=== PATIENT | female | born 1995 | race Caucasian/White ===

== ENCOUNTER 2020-12-24 13:30 | Emergency (ER) | payer OTHER ==
[~2020-12-24] VITALS: Ht 157.5 cm; Wt 47.6 kg
[2020-12-24 14:34] LABS: ABSOLUTE NEUTROPHILS 7.6 thou/uL (1.4-8.2); BASOPHILS 0.3 % (0.0-2.0); EOSINOPHILS 0.1 % (0.0-3.0); HEMATOCRIT 42.1 % (37.0-47.0); LYMPHOCYTES 5.3 % (24.0-44.0); MCH 30.2 pg (26.0-34.0); MCHC 33.2 g/dL (28.0-37.0); MCV 91.1 fL (80.0-100.0); MONOCYTES 5.3 % (1.0-8.0); RBC 4.62 mil/uL (4.20-5.00); RDW 12.6 % (10.5-14.5); WBC 8.5 thou/uL (4.0-11.0)
[2020-12-24 14:48] LABS: ANION GAP 13 mmol/L (7-16); BUN 7 mg/dL (7-18); CALCIUM 8.7 mg/dL (8.5-10.1); CHLORIDE 99 mmol/L (98-107); CO2 21 mmol/L (21-32); CREATININE 0.8 mg/dL (0.6-1.0); GLUCOSE 87 mg/dL (74-106); POTASSIUM 3.9 mmol/L (3.5-5.1); SODIUM 133 mmol/L (136-145)
[2020-12-24 14:58] LABS: ALBUMIN 4.3 g/dL (3.4-5.0); SGOT 24 U/L (15-37); SGPT 20 U/L (30-65); TOTAL BILIRUBIN 0.6 mg/dL (0.2-1.0); TOTAL PROTEIN 8.3 g/dL (6.4-8.2)
[2020-12-24 15:34] LABS: URINE BILIRUBIN NEGATIVE (Negative); URINE BLOOD TRACE (Negative); URINE CLARITY CLEAR; URINE GLUCOSE-RANDOM* NEGATIVE (Negative); URINE KETONES 1+ (Negative); URINE LEUKOCYTES-REFLEX NEGATIVE (Negative); URINE NITRITE-REFLEX NEGATIVE (Negative); URINE PROTEIN (DIPSTICK) NEGATIVE (Negative); URINE SPECIFIC GRAVITY <= 1.005 (1.005-1.035); URINE UROBILINOGEN 0.2 E.U./dl (0.2-1.0)
[2020-12-24 15:36] LABS: URINE COLOR STRAW
[2020-12-24] MEDS ORDERED: KAPSPARGO SPRIN25 MG PO (17:27)
[2020-12-24 17:43] VITALS: BP 113/82
--- NOTE | 2020-12-26 07:28 | EKG ---
[place] [address] [facility] [place] [address] ELECTROCARDIOGRAM REPORT Name: DHAVAL VAUGHAN Room #: NEFTALY Luis#: [id number] Admission: 12/24/20 Attend Phys: Discharge: 12/24/20 Date of : [birth year] Report #: [id number] [facility] [place], [place] ED Test Date: 2020-12-24 Test Time: 14:00:50 Pat Name: DHAVAL VAUGHAN Department: Room: Gender: F Dice Person: TRINA : 1995 Requested By: Edmar Stock Order Number: [id number] MD: Klaus Lopez Measurements Intervals [place] Rate: 140 P: 71 OK: 115 QRS: 56 QRSD: 75 T: 256 QT: 332 QTc: 507 Interpretive Statements Sinus tachycardia RSR' in V1 or V2, probably normal variant Borderline repolarization abnormality Prolonged QT interval No previous ECG available for comparison Electronically Signed On 12-26-2020 7:27:57 CDT by Klaus Lopez [email or web address] <ELECTRONICALLY SIGNED> By: Klaus Lopez MD, [facility] 12/26/20 0727 1400 [facility] Klaus Lopez MD FACC /EPI
== END 2020-12-24 17:56 | disposition home or self-care (01) ==
LOC: ER 13:30
PROVIDERS: Emergency Medicine
DX: R00.2 Palpitations (principal); Z20.822 Contact with and (suspected) exposure to COVID-19